=== PATIENT | male | born 1960 | race Caucasian/White ===

== ENCOUNTER 2020-06-28 14:21 | Emergency (ER) | payer MEDICAID ==
[~2020-06-28] VITALS: Ht 182.9 cm; Wt 77.4 kg
[2020-06-28 14:24] VITALS: BP 140/81
[2020-06-28] MEDS ORDERED: IBUP-1223 PO (15:17)
--- NOTE | 2020-06-28 15:21 | NUR ---
PT C/O LEFT INGUINAL HERNIA WITH PAIN WHEN SITTING UP OR FLEXING ABDOMINAL MUSCLES.
[2020-06-28 16:05] LABS: BASOPHILS % (AUTO) 1 % (0-1); EOSINOPHILS % (AUTO) 3 % (1-7); LYMPHOCYTES % (AUTO) 22 % (22-44); MEAN CORPUSCULAR HEMOGLOBIN 27.2 pg (27.5-34.5); MEAN CORPUSCULAR HGB CONC 33.5 g/dL (33.2-36.2); MEAN PLATELET VOLUME 6.2 fL (7.4-10.4); MONOCYTES % (AUTO) 12 % (2-9); NEUTROPHILS % (AUTO) 63 % (42-75); PLATELET COUNT 326 x10^3/uL (130-400); RED BLOOD COUNT 5.37 x10^6/uL (4.38-5.82); RED CELL DISTRIBUTION WIDTH 16.2 % (9.4-14.8)
[2020-06-28 16:06] LABS: MD NO
[2020-06-28 16:18] LABS: ALBUMIN 3.1 g/dL (3.4-5.0); CALCIUM 8.4 mg/dL (8.5-10.1); CREATININE 0.91 mg/dL (0.7-1.3)
[2020-06-28 16:21] LABS: ALANINE AMINOTRANSFERASE 20 U/L (12-78); ALKALINE PHOSPHATASE 123 U/L (45-117); BILIRUBIN,TOTAL 0.3 mg/dL (0.2-1.0); TOTAL PROTEIN 7.9 g/dL (6.4-8.2)
[2020-06-28 16:29] LABS: ANION GAP 3 mmol/L (5-15); CHLORIDE 107 mmol/L (98-107)
--- NOTE | 2020-06-28 16:34 | NUR ---
URINE COLLECTED AND SENT TO LAB.
[2020-06-28 16:45] LABS: MICROSCOPIC NOT IND
--- NOTE | 2020-06-28 17:47 | NUR ---
Patient given discharge instructions and they have confirmed that they understand the instructions. Patient ambulatory with steady gait.
== END 2020-06-28 17:48 | disposition home or self-care (01) ==
LOC: ED 16:05
DX: K40.91 Unilateral inguinal hernia, without obstruction or gangrene, recurrent (principal); M79.10 Myalgia, unspecified site
CPT/HCPCS: 36415; 80053; 81003; 85025; 99283